=== PATIENT | male | born 1950 | race Caucasian/White ===

== ENCOUNTER → 2016-09-06 | Outpatient (CLI) | payer MEDICARE, OTHER | END | disposition home or self-care (01) | LOC: CFH 09:19 | PROVIDERS: ATTEND Internal Medicine | DX: J43.9 Emphysema, unspecified (principal); J98.4 Other disorders of lung | CPT/HCPCS: 71250 ==

== ENCOUNTER → 2017-04-26 | Outpatient (CLI) | payer MEDICARE, OTHER | LOC: CFH 07:23 | PROVIDERS: ATTEND Internal Medicine | DX: J92.9 Pleural plaque without asbestos (principal) | CPT/HCPCS: 71250 ==

== ENCOUNTER 2018-04-27 09:35 | Outpatient (CLI) | payer MEDICARE, OTHER | END 2018-04-27 23:59 | disposition home or self-care (01) | LOC: CFH 09:35 | PROVIDERS: ATTEND Nurse Practitioner | DX: Z12.2 Encounter for screening for malignant neoplasm of respiratory organs (principal); Z87.891 Personal history of nicotine dependence | CPT/HCPCS: G0297 ==

== ENCOUNTER → 2018-05-30 | Outpatient (CLI) | payer MEDICARE, OTHER | END | disposition home or self-care (01) | LOC: CFH 14:06 | PROVIDERS: ATTEND Internal Medicine | DX: J92.9 Pleural plaque without asbestos (principal); J94.8 Other specified pleural conditions; R91.8 Other nonspecific abnormal finding of lung field | CPT/HCPCS: 71250 ==

== ENCOUNTER 2018-11-30 08:07 | Outpatient (CLI) | payer MEDICARE, OTHER | END 2018-11-30 23:59 | disposition home or self-care (01) | LOC: CFH 08:07 | PROVIDERS: ATTEND Nurse Practitioner | DX: Z12.2 Encounter for screening for malignant neoplasm of respiratory organs (principal); R91.8 Other nonspecific abnormal finding of lung field; Z87.891 Personal history of nicotine dependence | CPT/HCPCS: G0297 ==

== ENCOUNTER → 2019-11-29 | Outpatient (CLI) | payer MEDICARE, OTHER | END | disposition home or self-care (01) | LOC: ROC 07:50 | PROVIDERS: ATTEND Radiology Radiation Oncology | DX: C78.01 Secondary malignant neoplasm of right lung (principal); R91.8 Other nonspecific abnormal finding of lung field; J92.9 Pleural plaque without asbestos | CPT/HCPCS: G0463 ==

== ENCOUNTER → 2019-12-03 | Outpatient (CLI) | payer MEDICARE, OTHER ==
[~2019-12-03] MED LIST: FLUT1BLS3 IH; IMITREX PO
== END | disposition home or self-care (01) ==
LOC: PETCFH 13:07
PROVIDERS: ATTEND Radiology Radiation Oncology
DX: J92.9 Pleural plaque without asbestos (principal); R91.8 Other nonspecific abnormal finding of lung field; J98.4 Other disorders of lung
CPT/HCPCS: 78815; A9552

== ENCOUNTER 2019-12-04 12:50 | Day surgery (SDC) | payer MEDICARE, OTHER ==
[~2019-12-04] VITALS: Ht 198.1 cm; Wt 90.9 kg
[~2019-12-04 12:50] MED LIST changes: +DEXAMETHASONE 4 MG/ML, 1ML ONE; -FLUT1BLS3 IH; -IMITREX PO; +ONDANSETRON 2MG/ML, 2ML ONE; +PROPOFOL 10 MG/ML, 20ML ONE; +ROCURONIUM 10MG/ML,5ML ONE
[2019-12-04] MEDS ORDERED: LACTATED RINGERS 1,000 ML IV SCH (13:56)
[2019-12-04] MEDS ORDERED: IMITREX PO (13:59)
[2019-12-04] MEDS ORDERED: FLUT1BLS3 IH (13:59)
[2019-12-04] MEDS ORDERED: CHLORHEXIDINE 15 ML UDC MM ONE (14:00)
[2019-12-04 14:17] VITALS: BP 119/74
[2019-12-04] MEDS ORDERED: FENTANYL PF 250 MCG/5ML ONE (14:28)
[2019-12-04] MEDS ORDERED: PROPOFOL 50 ML ONE (14:28)
[2019-12-04] MEDS ORDERED: MEPERIDINE/PF 25MG/0.5ML IVPush PRN (15:30)
[2019-12-04] MEDS ORDERED: ONDANSETRON 2MG/ML, 2ML IVPush PRN (15:30)
[2019-12-04] MEDS ORDERED: EPHEDRINE 50 MG/ML, 1ML IM PRN (15:30)
[2019-12-04] MEDS ORDERED: DIAZEPAM 5 MG/ML, 2ML IVPush PRN (15:30)
[2019-12-04] MEDS ORDERED: METOPROLOL 1 MG/ML, 5ML IV PRN (15:30)
[2019-12-04] MEDS ORDERED: EPHEDRINE 50 MG/ML, 1ML IVPush PRN (15:30)
[2019-12-04] MEDS ORDERED: PROMETHAZINE 25 MG/ML, 1ML IVPush PRN (15:30)
[2019-12-04] MEDS ORDERED: ALBUTEROL/IPRATROPIUM 2.5MG/0.5MG, 3 ML NPPB PRN (15:30)
[2019-12-04] MEDS ORDERED: OXYcodone 5 MG/5 ML ORAL.SOL UDC PO PRN (15:30)
[2019-12-04] MEDS ORDERED: FENTANYL PF 100 MCG/2ML IV PRN (15:30)
[2019-12-04] MEDS ORDERED: morphine SULFATE 10 MG/ML, 1ML IVPush PRN (15:30)
[2019-12-04] MEDS ORDERED: DIPHENHYDRAMINE 50 MG/ML, 1ML IVPush PRN (15:30)
[2019-12-04] MEDS ORDERED: hydrALAzine 20 MG/ML, 1ML IV PRN (15:30)
== END 2019-12-04 18:50 | disposition home or self-care (01) ==
LOC: OUT 12:50
PROVIDERS: ATTEND Internal Medicine
DX: R91.8 Other nonspecific abnormal finding of lung field (principal); C34.11 Malignant neoplasm of upper lobe, right bronchus or lung; Z11.59 Encounter for screening for other viral diseases; J44.9 Chronic obstructive pulmonary disease, unspecified; Z79.899 Other long term (current) drug therapy; Z87.891 Personal history of nicotine dependence
CPT/HCPCS: 31624; 31625; 31652; 71045; 87635; 88112; 88172; 88173; 88177; 88305; 88333; 88334; 93005; J1100; J2405; J2704; J3010; J7120; 31629

== ENCOUNTER 2019-12-06 17:06 | Emergency (ER) | payer MEDICARE, OTHER ==
[~2019-12-06] VITALS: Ht 198.1 cm; Wt 93.6 kg
[~2019-12-06 17:06] MED LIST changes: -DEXAMETHASONE 4 MG/ML, 1ML ONE; +FLUT1BLS3 IH; +IMITREX PO; -ONDANSETRON 2MG/ML, 2ML ONE; -PROPOFOL 10 MG/ML, 20ML ONE; -ROCURONIUM 10MG/ML,5ML ONE
--- NOTE | 2019-12-06 17:35 | NUR ---
PATIENT COMES IN TODAY WITH C/O OF CHILLS AND FEVER OF 102.2 X1 DAY. PATIENT HAD BRONHCOSCOPY Monday12/04/2019. PATIENT A&OX4, O2 SATURATION 93% ON RA. ERMD AT BEDSIDE FOR EVALUATION. NO C/O PAIN AT THIS TIME.
[2019-12-06] MEDS ORDERED: ACETAMINOPHEN 325 MG TABLET ONE (17:49)
[2019-12-06] MEDS ORDERED: ACETAMINOPHEN 325 MG TABLET PO ONE (18:00)
[2019-12-06] MEDS ORDERED: SODIUM CHLORIDE 0.9% 1,000ML IVBOLUS ONE (18:00)
[2019-12-06 18:08] LABS: MEAN CORPUSCULAR HGB CONC 33.6 g/dL (33.2-36.2); MEAN CORPUSCULAR VOLUME 92.4 fL (81-97); PLATELET COUNT 305 x10^3/uL (130-400); RED BLOOD COUNT 4.46 x10^6/uL (4.38-5.82); RED CELL DISTRIBUTION WIDTH 13.3 % (9.4-14.8)
--- NOTE | 2019-12-06 18:09 | NUR ---
20 GAUGE IV STARTED RFA, 2ND SET OF BLOOD CULTURES DRAWN, 1 LITER NS BOLUS HUNG, TYLENOL GIVEN. CALL LIGHT WITHIN REACH, NO FURTHER NEEDS AT THIS TIME.
[2019-12-06 18:15] LABS: ALBUMIN 3.4 g/dL (3.4-5.0); ANION GAP 6 mmol/L (5-15); CALCIUM 8.4 mg/dL (8.5-10.1); CHLORIDE 104 mmol/L (98-107); CREATININE 0.84 mg/dL (0.7-1.3)
[2019-12-06 18:28] LABS: BASOPHILS % (AUTO) 0 % (0-1); EOSINOPHILS # (AUTO) 0.09 x10^3/uL (0-0.4); EOSINOPHILS % (AUTO) 1 % (1-7); LYMPHOCYTES # (AUTO) 0.89 x10^3/uL (1-3.4); LYMPHOCYTES % (AUTO) 6 % (22-44); MD SCAN; MONOCYTES # (AUTO) 0.75 x10^3/uL (0.2-0.8); MONOCYTES % (AUTO) 5 % (2-9); NEUTROPHILS # (AUTO) 14.14 x10^3/uL (1.8-6.8); NEUTROPHILS % (AUTO) 89 % (42-75)
[2019-12-06] MEDS ORDERED: CEFTRIAXONE PMX 1GM/50ML 50 ML ONE (18:40)
[2019-12-06] MEDS ORDERED: AZITHROMYCIN 500 MG in SODIUM CHLORIDE 0.9% 250 ML IVPB ONE (19:00)
[2019-12-06] MEDS ORDERED: CEFTRIAXONE PMX 1GM/50ML 50 ML IVPB ONE (19:00)
--- NOTE | 2019-12-06 19:01 | NUR ---
REPORT RECEIVED FROM JOHN KAPADIA.
[2019-12-06 19:15] VITALS: BP 130/70
--- NOTE | 2019-12-06 19:16 | NUR ---
PT UPDATED ON POC, MONITORING IN PLACE, CALL LIGHT WITHIN REACH, ALL SAFETY MEASURES IN PLACE. ERP IN ROOM TO DISCUSS POC WITH PT. FAMILY AT FOR SUPPORT.
[2019-12-06] MEDS ORDERED: AZITHROMYCIN 500 MG TABLET PO ONE (19:30)
[2019-12-06] MEDS ORDERED: AZITHROMYCIN 500 MG TABLET ONE (19:50)
== END 2019-12-06 20:14 | disposition home or self-care (01) ==
LOC: ED 19:30
DX: J18.9 Pneumonia, unspecified organism (principal); R50.9 Fever, unspecified; R00.0 Tachycardia, unspecified; Z85.9 Personal history of malignant neoplasm, unspecified
CPT/HCPCS: 36415; 71045; 80048; 82040; 83605; 84145; 85025; 87040; 93005; 96365; 99285; J0696; J7030

== ENCOUNTER 2019-12-13 07:38 | Outpatient (CLI) | payer MEDICARE, OTHER | END 2019-12-13 23:59 | disposition home or self-care (01) | LOC: ROC 07:38 | PROVIDERS: ATTEND Radiology Radiation Oncology | DX: C34.01 Malignant neoplasm of right main bronchus (principal); J44.9 Chronic obstructive pulmonary disease, unspecified; Z87.891 Personal history of nicotine dependence; Z79.899 Other long term (current) drug therapy | CPT/HCPCS: G0463 ==

== ENCOUNTER → 2019-12-29 | Outpatient (CLI) | payer MEDICARE, OTHER ==
[2019-12-29 08:08] LABS: ALANINE AMINOTRANSFERASE 20 U/L (12-78); ALBUMIN 3.4 g/dL (3.4-5.0); ANION GAP 6 mmol/L (5-15); CALCIUM 9.4 mg/dL (8.5-10.1); CHLORIDE 102 mmol/L (98-107); CREATININE 0.88 mg/dL (0.7-1.3)
[2019-12-29 08:10] LABS: ALKALINE PHOSPHATASE 63 U/L (45-117); BILIRUBIN,TOTAL 0.6 mg/dL (0.2-1.0); TOTAL PROTEIN 7.2 g/dL (6.4-8.2)
== END | disposition home or self-care (01) ==
LOC: LAB 07:37
PROVIDERS: ATTEND Nurse Practitioner Family
DX: Z51.11 Encounter for antineoplastic chemotherapy (principal); C34.11 Malignant neoplasm of upper lobe, right bronchus or lung; J44.9 Chronic obstructive pulmonary disease, unspecified; Z79.899 Other long term (current) drug therapy
CPT/HCPCS: 36415; 80053

== ENCOUNTER → 2020-02-28 | Outpatient (CLI) | payer MEDICARE, OTHER | END | disposition home or self-care (01) | LOC: ROC 07:21 | PROVIDERS: ATTEND Radiology Radiation Oncology | DX: C34.01 Malignant neoplasm of right main bronchus (principal); C34.11 Malignant neoplasm of upper lobe, right bronchus or lung; J44.9 Chronic obstructive pulmonary disease, unspecified; Z79.899 Other long term (current) drug therapy; Z87.891 Personal history of nicotine dependence | CPT/HCPCS: G0463 ==

== ENCOUNTER → 2020-03-16 | Outpatient (CLI) | payer MEDICARE, OTHER ==
[~2020-03-16] MED LIST changes: +OMNIPAQUE 350 MG/ML, 75ML BOTTLE ONE
== END | disposition home or self-care (01) ==
LOC: CFH 10:55
PROVIDERS: ATTEND Internal Medicine
DX: C34.11 Malignant neoplasm of upper lobe, right bronchus or lung (principal); J18.9 Pneumonia, unspecified organism; J94.8 Other specified pleural conditions; J98.4 Other disorders of lung; R91.8 Other nonspecific abnormal finding of lung field
CPT/HCPCS: 71260; Q9967

== ENCOUNTER 2020-05-06 12:08 | Emergency (ER) | payer MEDICARE, OTHER ==
[~2020-05-06] VITALS: Ht 198.1 cm; Wt 87.6 kg
[~2020-05-06 12:08] MED LIST changes: -OMNIPAQUE 350 MG/ML, 75ML BOTTLE ONE
--- NOTE | 2020-05-06 12:47 | NUR ---
Rn just aware of pt presence, not in assigned room section. Pt waiting quietly and retail selling floor leader started.
[2020-05-06] MEDS ORDERED: trilogy IH (13:01)
[2020-05-06] MEDS ORDERED: paxil PO (13:01)
--- NOTE | 2020-05-06 13:12 | NUR ---
ammonia technician at bedside for PCXR at this time.
--- NOTE | 2020-05-06 13:17 | NUR ---
PA at bedside for covid swabbing of pt.
--- NOTE | 2020-05-06 13:58 | NUR ---
Pr results all back and up for MD recheck. Pt states he does not need anything and is aware of wait for MD to come in and discuss PCXR and plan of care.
--- NOTE | 2020-05-06 14:11 | NUR ---
PA at bedside to discuss plan of care now.
--- NOTE | 2020-05-06 14:57 | NUR ---
Pt used the restroom while waiting for d/c. States PA told him he was going to send him home with PO abx. Pt changed into his own clothes and aware he is waiting for d/c paperwork to come up.
--- NOTE | 2020-05-06 15:01 | NUR ---
Report given to JOHN Ritter and care transferred.
--- NOTE | 2020-05-06 15:09 | NUR ---
Report from JOHN Munson. [facility].
[2020-05-06 15:17] VITALS: BP 104/61
--- NOTE | 2020-05-06 15:22 | NUR ---
Pt agrees with and understands discharge plan and instructions.
== END 2020-05-06 15:26 | disposition home or self-care (01) ==
LOC: ED 13:56
DX: U07.1 COVID-19 (principal); J15.9 Unspecified bacterial pneumonia
CPT/HCPCS: 71045; 93005; 99285; U0003

== ENCOUNTER 2020-06-19 07:53 | Outpatient (CLI) | payer MEDICARE, OTHER ==
[~2020-06-19 07:53] MED LIST changes: +paxil PO; +trilogy IH
== END 2020-06-19 23:59 | disposition home or self-care (01) ==
LOC: ROC 07:53
PROVIDERS: ATTEND Radiology Radiation Oncology
DX: Z08 Encounter for follow-up examination after completed treatment for malignant neoplasm (principal); Z85.118 Personal history of other malignant neoplasm of bronchus and lung
CPT/HCPCS: G0463

== ENCOUNTER → 2020-09-18 | Outpatient (CLI) | payer MEDICARE, OTHER | END | disposition home or self-care (01) | LOC: ROC 07:22 | PROVIDERS: ATTEND Radiology Radiation Oncology | DX: Z08 Encounter for follow-up examination after completed treatment for malignant neoplasm (principal); Z85.118 Personal history of other malignant neoplasm of bronchus and lung | CPT/HCPCS: G0463 ==

== ENCOUNTER 2020-11-10 07:43 | Emergency (ER) | payer MEDICARE, OTHER ==
[~2020-11-10] VITALS: Ht 198.1 cm; Wt 71.1 kg
--- NOTE | 2020-11-10 08:10 | NUR ---
pt presents to ed with c/o SOB and feeling congested in lungs x5 days. pt has hx of lung ca and states he has had this feeling before. pt a&o, resps even and unlabored, adrians, mio. erpa at bedside for eval.
[2020-11-10 08:36] LABS: BASOPHILS % (AUTO) 1 % (0-1); EOSINOPHILS % (AUTO) 1 % (1-7); LYMPHOCYTES % (AUTO) 6 % (22-44); MEAN CORPUSCULAR HEMOGLOBIN 31.5 pg (27.5-34.5); MEAN CORPUSCULAR HGB CONC 34.4 g/dL (33.2-36.2); MEAN PLATELET VOLUME 6.6 fL (7.4-10.4); MONOCYTES % (AUTO) 11 % (2-9); NEUTROPHILS % (AUTO) 81 % (42-75); PLATELET COUNT 278 x10^3/uL (130-400); RED BLOOD COUNT 4.29 x10^6/uL (4.38-5.82); RED CELL DISTRIBUTION WIDTH 13.1 % (9.4-14.8)
[2020-11-10 08:44] LABS: ALBUMIN 3.5 g/dL (3.4-5.0); ANION GAP 5 mmol/L (5-15); CALCIUM 9.3 mg/dL (8.5-10.1); CHLORIDE 98 mmol/L (98-107); CREATININE 0.81 mg/dL (0.7-1.3)
[2020-11-10 09:02] VITALS: BP 126/91
--- NOTE | 2020-11-10 09:03 | NUR ---
pt resting in bed, a&o, resps even and unlabored, vss, nadn. awaiting lab/xr results and dispo. call light in reach.
--- NOTE | 2020-11-10 09:13 | NUR ---
DC instructions reviewed
== END 2020-11-10 09:17 | disposition home or self-care (01) ==
LOC: ED 09:05
DX: J06.9 Acute upper respiratory infection, unspecified (principal); Z20.822 Contact with and (suspected) exposure to COVID-19
CPT/HCPCS: 36415; 71045; 80048; 82040; 85025; 99284; U0003; U0005

== ENCOUNTER → 2020-11-30 | Outpatient (CLI) | payer MEDICARE, OTHER | END | disposition home or self-care (01) | LOC: ROC 07:54 | PROVIDERS: ATTEND Radiology Radiation Oncology | DX: Z08 Encounter for follow-up examination after completed treatment for malignant neoplasm (principal); Z85.118 Personal history of other malignant neoplasm of bronchus and lung | CPT/HCPCS: G0463 ==